=== PATIENT | female | born 1980 | race Caucasian/White ===

== ENCOUNTER 2018-03-31 16:50 | Emergency (ER) | payer MEDICAID ==
[~2018-03-31] VITALS: Ht 162.6 cm; Wt 103.9 kg
[2018-03-31 17:02] VITALS: BP 168/86; Ht 162.6 cm; Wt 103.9 kg
== END 2018-03-31 19:06 | disposition left against medical advice (07) ==
LOC: ED 16:50
DX: Z53.21 Procedure and treatment not carried out due to patient leaving prior to being seen by health care provider (principal)

== ENCOUNTER 2018-07-16 07:50 | Emergency (ER) | payer MEDICAID ==
[~2018-07-16] VITALS: Ht 162.6 cm; Wt 102.1 kg
[2018-07-16 07:52] VITALS: Ht 162.6 cm; Wt 102.1 kg
[2018-07-16 09:15] VITALS: BP 130/96
== END 2018-07-16 09:16 | disposition home or self-care (01) ==
LOC: ED 07:50
DX: I88.9 Nonspecific lymphadenitis, unspecified (principal); K11.20 Sialoadenitis, unspecified; J45.909 Unspecified asthma, uncomplicated; E11.9 Type 2 diabetes mellitus without complications; Z86.2 Personal history of diseases of the blood and blood-forming organs and certain disorders involving the immune mechanism; Z90.89 Acquired absence of other organs; Z87.19 Personal history of other diseases of the digestive system; Z98.51 Tubal ligation status